=== PATIENT | male | born 1955 | race Caucasian/White ===

== ENCOUNTER → 2016-12-12 | Outpatient (CLI) | payer OTHER ==
[~2016-12-12] MED LIST: ASPI-496 PO; CLON0.1T PO; GLUC1500 PO; LORA-702 PO; OMEG100023 PO; VIT-3 PO
== END | disposition home or self-care (01) ==
LOC: STAR 15:18
PROVIDERS: ATTEND Otolaryngology
DX: Z01.818 Encounter for other preprocedural examination (principal); D03 Melanoma in situ
CPT/HCPCS: 93005